=== PATIENT | female | born 1990 | race African-American/Black ===

== ENCOUNTER → 2023-09-16 07:44 | Outpatient (REF) | payer BC, SELFPAY | LOC: REG 07:44 | PROVIDERS: ATTENDING PHYSICIAN Obstetrics & Gynecology | DX: Z34.00 Encounter for supervision of normal first pregnancy, unspecified trimester (principal) | CPT/HCPCS: 36415 ==

== ENCOUNTER → 2023-11-12 17:14 | Outpatient (REF) | payer BC, SELFPAY | LOC: REG 17:14 | PROVIDERS: ATTENDING PHYSICIAN Obstetrics & Gynecology | DX: Z34.00 Encounter for supervision of normal first pregnancy, unspecified trimester (principal) | CPT/HCPCS: 36415; 82105 ==